=== PATIENT | male | born 1960 | race Caucasian/White ===

== ENCOUNTER 2019-07-24 15:16 | Outpatient (CLI) | END 2019-07-24 15:17 | disposition home or self-care (01) | LOC: NONPT 15:16 | PROVIDERS: ATTEND Family Medicine | DX: E03.9 Hypothyroidism, unspecified (principal); E11.9 Type 2 diabetes mellitus without complications | CPT/HCPCS: 80053; 83036; 84439; 84443; 85025 ==

== ENCOUNTER 2020-10-24 04:40 | Inpatient (IN) ==
[2020-10-24 05:10] VITALS: BMI 26.6
[2020-10-24] MEDS ORDERED: DECADRON IVP STA (05:11)
[2020-10-24] MEDS ORDERED: ZOSYN 3.375 GM 3.375 GM in SODIUM CHLORIDE 50 ML IV STA (05:11)
--- NOTE | 2020-10-24 05:46 | ED.PDOC ---
General ED Provider: Dr. TY GIBSON Chief Complaint: Shortness of Air Stated Complaint: short of breath Time Seen by Physician: 04:45 Mode of Arrival: Ambulance Information Source: Halfway and EMT Primary Care Provider: RUSSEL CABRALES MD Nursing and Triage Documentation Reviewed and Agree: Yes Does patient meet sepsis criteria?: No System Inflammatory Response Syndrome: Not Applicable Sepsis Protocol: For patient's 13 years and over: Temp is 96.8 and below OR 101 and greater Pulse >90 BPM Resp >20/minute Acutely Altered Mental Status Are patient's symptoms suggestive of a new infection, such as: -Pneumonia -Skin, Soft Tissue -Endocarditis -UTI -Bone, Joint Infection -Implantable Device -Acute Abdominal Infection -Wound Infection -Meningitis -Blood Stream Catheter Infection -Unknown Respiratory Complaint Exam Respiratory Complaint/Exam Onset/Duration: this am Symptoms Are: Still present Timing: Constant Initial Severity: Moderate Current Severity: Moderate Location: Chest Character: Reports Productive cough Associated Signs and Symptoms: Reports Rapid breathing History of Healthcare-Acquired Pneumonia: [facility] at [facility] Respiratory Distress: Moderate Inadequate Respiratory Effort: No Stridor Present: No JVD Present: No Accessory Muscle Use: Yes Retractions: Diaphragmatic Diminished Breath Sounds: Yes Differential Diagnoses: Pneumonia, Influenza and Other (covid positive ) Quality Indicators For Pneumonia: Blood Cultures-SCU admit and Vital signs Non-Traumatic Chest Pain Syncope: EKG Performed Review of Systems Review Of Systems Constitutional: Reports No symptoms Respiratory: Reports Cough and Short of air All Other Systems: Other (patient is nonverbal ) Physical Exam Physical Exam Appearance: Reports Ill-appearing Ill-appearing: Moderate Pain Distress: None Eyes: Reports CARIE, EOMI and Conjunctiva clear ENT: Reports Ears normal, Nose normal and Oropharynx normal Neck: Supple Respiratory: Reports Airway patent, Breath sounds diminished and Retractions Cardiovascular: Reports RRR and Pulses normal GI/: Reports Soft and Nontender Musculoskeletal: Reports ROM intact Skin: Reports Warm, Dry and Normal color Neurological: Reports Alert and Alert to verbal Interpretation Radiology Interpretation Radiology Interpretation By: Radiologist Radiology Results: Positive Exam Interpreted: CXR Xray Comments: patchy infiltrates both lungs - pneumonia EKG Interpretation Time of EKG #1: 05:13 Rate: Normal Ectopy: None [place]: Left ST Segment: Other (nsssttw) Interpretation: no acute changes Re-Evaluation Re-Evaluation Time of Re-Evaluation: 06:05 Status: Improved Vital Signs Stable: Yes Lungs: Other (improved aeration no abdominal breathing following suctioning and MDI an dVapotherm by RT Raza ) Skin: Warm and Dry CV: RRR Physician Notification Case Discussed Admit To: Inpatient Consult With: Dr San Comments: [id number] agrees with plan - pt on doac already with regards to dimer Critical Care Note Critical Care Note Total Critical Care Time (mins): 20 Course Course Hematology/Chemistry: 10/24/20 05:55 10/24/20 05:55 Orders, Labs, Meds: Lab Review 10/24/20 10/24/20 10/24/20 05:24 05:55 05:55 WBC 10.29 H RBC 4.90 Hgb 15.5 Hct 46.1 MCV 94.1 H MCH 31.6 H MCHC 33.6 RDW Coeff of Dereje 13.7 Plt Count 251 Immature Gran % (Auto) 0.4 Neut % (Auto) 79.9 H Lymph % (Auto) 7.2 L [place] % (Auto) 12.1 H Eos % (Auto) 0.0 Baso % (Auto) 0.4 Neut # (Auto) 8.2 H Lymph # (Auto) 0.7 [place] # (Auto) 1.3 Eos # (Auto) 0.0 Baso # (Auto) 0.0 Immature Gran # (Auto) 0.0 PT INR Puncture Site Rb O2 Saturation 94.9 L ABG pH 7.42 ABG pCO2 51.0 H ABG pO2 84.0 L ABG HCO3 33.1 H ABG Total CO2 34.7 H ABG Base Excess 8.6 H Gume Test + O2 Delivery Device Bnc Oxygen Liter Flow 2.00 FiO2 % 32.0 Sodium 145.2 H Potassium 3.64 Chloride 105.9 Carbon Dioxide 33.9 H Anion Gap 9.04 BUN 13.0 Creatinine 0.96 Estimated GFR (MDRD) 80.00 BUN/Creatinine Ratio 13.54 Glucose 129.2 H Calcium 8.54 Ferritin 246.00 Total Bilirubin 0.72 AST 34.2 ALT 17.4 Alkaline Phosphatase 106.8 Troponin I < 0.012 Total Protein 8.13 Albumin 3.54 Globulin 4.59 Albumin/Globulin Ratio 0.77 D-Dimer Influ A Molecular Assay Influ B Molecular Assay 10/24/20 10/24/20 10/24/20 05:55 05:55 05:56 WBC RBC Hgb Hct MCV MCH MCHC RDW Coeff of Dereje Plt Count Immature Gran % (Auto) Neut % (Auto) Lymph % (Auto) [place] % (Auto) Eos % (Auto) Baso % (Auto) Neut # (Auto) Lymph # (Auto) [place] # (Auto) Eos # (Auto) Baso # (Auto) Immature Gran # (Auto) PT 13.6 H INR 1.42 Puncture Site O2 Saturation ABG pH ABG pCO2 ABG pO2 ABG HCO3 ABG Total CO2 ABG Base Excess Gume Test O2 Delivery Device Oxygen Liter Flow FiO2 % Sodium Potassium Chloride Carbon Dioxide Anion Gap BUN Creatinine Estimated GFR (MDRD) BUN/Creatinine Ratio Glucose Calcium Ferritin Total Bilirubin AST ALT Alkaline Phosphatase Troponin I Total Protein Albumin Globulin Albumin/Globulin Ratio D-Dimer 1098.01 H Influ A Molecular Assay Negative by naat Influ B Molecular Assay Negative by naat 10/24/20 06:00 WBC RBC Hgb Hct MCV MCH MCHC RDW Coeff of Dereje Plt Count Immature Gran % (Auto) Neut % (Auto) Lymph % (Auto) [place] % (Auto) Eos % (Auto) Baso % (Auto) Neut # (Auto) Lymph # (Auto) [place] # (Auto) Eos # (Auto) Baso # (Auto) Immature Gran # (Auto) PT INR Puncture Site Rb O2 Saturation 93.7 L ABG pH 7.41 ABG pCO2 53.0 H ABG pO2 75.0 L ABG HCO3 33.6 H ABG Total CO2 35.2 H ABG Base Excess 2.4 H Gume Test + O2 Delivery Device Vapotherm Oxygen Liter Flow FiO2 % 40.0 Sodium Potassium Chloride Carbon Dioxide Anion Gap BUN Creatinine Estimated GFR (MDRD) BUN/Creatinine Ratio Glucose Calcium Ferritin Total Bilirubin AST ALT Alkaline Phosphatase Troponin I Total Protein Albumin Globulin Albumin/Globulin Ratio D-Dimer Influ A Molecular Assay Influ B Molecular Assay Orders Category Date Time Status ABG DRAW REQUEST DAILY@0600 CARDIO 10/25/20 06:00 Ordered ABG DRAW REQUEST DAILY@0600 CARDIO 10/26/20 06:00 Ordered ABG DRAW REQUEST DAILY@0600 CARDIO 10/27/20 06:00 Ordered ABG DRAW REQUEST Stat CARDIO 10/24/20 05:17 Completed EKG-(ED ONLY) Stat CARDIO 10/24/20 05:11 Completed METERED DOSE INHALATION Routine CARDIO 10/24/20 05:14 Completed METERED DOSE INHALATION Routine CARDIO 10/24/20 07:30 Ordered OXYGEN Routine CARDIO 10/24/20 06:54 Ordered VAPOTHERM Routine CARDIO 10/24/20 05:26 Active ACTIVITY .Up ad Yareli CARE 10/24/20 06:52 Active BLOOD GLUCOSE MONITORING 0630,1100,1700,2100 CARE 10/24/20 06:54 Active GIVE HS SNACK 2100 CARE 10/24/20 06:54 Active VITAL SIGNS Q8HR CARE 10/24/20 06:52 Active ADA 1800 [place]. DIET DIETARY 10/24/20 Breakfast Ordered HS SNACK DIETARY 10/24/20 Dinner Ordered ED IV/MEDIPORT/POWERPORT .ONCE EMERGENCY 10/24/20 05:11 Active ABG DAILY@0600 LAB 10/24/20 06:00 Completed ABG DAILY@0600 LAB 10/25/20 06:00 Ordered ABG Stat LAB 10/24/20 05:24 Completed BLOOD CULTURE (ED ONLY) Stat LAB 10/24/20 05:55 Received CBC W/ AUTO DIFF DAILY@0600 LAB 10/25/20 06:00 Ordered CBC W/ AUTO DIFF DAILY@0600 LAB 10/26/20 06:00 Ordered CBC W/ AUTO DIFF Stat LAB 10/24/20 05:55 Completed COMPREHENSIVE METABOLIC PANEL DAILY@0600 LAB 10/25/20 06:00 Ordered COMPREHENSIVE METABOLIC PANEL DAILY@0600 LAB 10/26/20 06:00 Ordered COMPREHENSIVE METABOLIC PANEL Stat LAB 10/24/20 05:55 Completed D-DIMER Stat LAB 10/24/20 05:55 Completed FERRITIN Stat LAB 10/24/20 05:55 Completed FLU A & B MOLECULAR [FLU A/B MOLECULAR] Stat LAB 10/24/20 05:55 Completed Lactic Acid Dehydrogenase Stat LAB 10/24/20 05:55 Received PT WITH INR Stat LAB 10/24/20 05:56 Completed TROPONIN I Stat LAB 10/24/20 05:55 Completed 0.9 % Sodium Chloride [Saline Flush] MEDS 10/24/20 05:11 Active 1 syr IVF PRN PRN Acetaminophen [Tylenol] MEDS 10/24/20 07:02 Ordered 650 mg PO Q4H PRN Albuterol Inhaler(with Spacer) [Ventolin Hfa (Per Puff- MEDS 10/24/20 07:29 Discontinued with Spacer)] 2 puff IH ONCE STA Dexamethasone Sod Phosphate [Decadron] MEDS 10/24/20 05:11 Discontinued 6 mg IVP ONCE STA Doxycycline Hyclate Inj [Doxy-100] 100 mg MEDS 10/24/20 09:00 Ordered 0.9 % Sodium Chloride [Sodium Chloride] 100 ml IV Q12HR Insulin Regular, Human [Humulin R] MEDS 10/24/20 06:52 Active See Protocol SUBCUT PRN PRN Magnesium Hydroxide [Milk of Magnesia] MEDS 10/24/20 07:02 Ordered 30 ml PO BID PRN Piperacillin Sodium/Tazobactam [Zosyn 3.375 gm] 3.375 MEDS 10/24/20 05:11 Discontinued gm 0.9 % Sodium Chloride [Sodium Chloride] 50 ml IV ONCE Remdesivir Solution [Remdesivir] 100 mg MEDS 10/25/20 09:00 Ordered 0.9 % Sodium Chloride [Sodium Chloride] 230 ml IV DAILY Remdesivir Solution [Remdesivir] 200 mg MEDS 10/24/20 06:57 Active 0.9 % Sodium Chloride [Sodium Chloride] 210 ml IV ONCE Rivaroxaban [Xarelto] MEDS 10/24/20 09:00 Ordered 20 mg PO DAILY Saccharomyces Boulardii [Florastor] MEDS 10/24/20 09:00 Ordered 250 mg PO BID Tamsulosin HCl [Flomax] MEDS 10/24/20 07:30 Ordered 0.4 mg PO QHS levothyroxine MEDS 10/24/20 07:15 Ordered 25 mcg PO QDAY levothyroxine MEDS 10/24/20 07:15 Ordered 50 mcg PO QDAY memantine-donepezil [Namzaric] MEDS 10/24/20 07:15 Ordered 1 cap PO QHS RESUSCITATION STATUS Routine OTHERS 10/24/20 06:52 Ordered CHEST, 1V AP ONLY Stat RADS 10/24/20 05:11 Completed Medications Generic Name Dose Route Start Last Admin Trade Name Freq PRN Reason Stop Dose Admin Acetaminophen 650 mg 10/24/20 07:02 Acetaminophen 325 Mg Tablet PO Q4H PRN Fever >101 REMDESIVIR SOLUTION 200 mg/ 250 mls @ 125 mls/hr 10/24/20 06:57 Sodium Chloride IV 10/24/20 08:56 ONCE ONE Doxycycline Hyclate 100 mg/ 100 mls @ 50 mls/hr 10/24/20 09:00 Sodium Chloride IV 10/27/20 08:59 Q12HR [facility] REMDESIVIR SOLUTION 100 mg/ 250 mls @ 250 mls/hr 10/25/20 09:00 Sodium Chloride IV DAILY [facility] Insulin Human Regular 0 unit 10/24/20 06:52 Insulin Regular, Human 100 Unit/Ml (3ml) Vial SUBCUT PRN PRN Hyperglycemia Protocol Magnesium Hydroxide 30 ml 10/24/20 07:02 Magnesium Hydroxide 30 Ml Cup PO BID PRN Constipation Non-Formulary Medication 50 mcg 10/24/20 07:15 Levothyroxine PO QDAY ELIZA Non-Formulary Medication 25 mcg 10/24/20 07:15 Levothyroxine PO QDAY [facility] Non-Formulary Medication 1 cap 10/24/20 07:15 Memantine-Donepezil [Namzaric] PO QHS [facility] Rivaroxaban 20 mg 10/24/20 09:00 Rivaroxaban 10 Mg Tablet PO DAILY [facility] Saccharomyces Boulardii 250 mg 10/24/20 09:00 Saccharomyces Boulardii 250 Mg Capsule PO BID [facility] Sodium Chloride 1 syr 10/24/20 05:11 10/24/20 06:03 0.9% Sodium Chloride 10 Ml Disp.Syrin IVF 1 syr PRN PRN Administration To flush IV Tamsulosin HCl 0.4 mg 10/24/20 07:30 Tamsulosin Hcl 0.4 Mg Cap.Er.24h PO QHS [facility] Discontinued Medications Generic Name Dose Route Start Last Admin Trade Name Freq PRN Reason Stop Dose Admin Albuterol Sulfate 2 puff 10/24/20 07:29 10/24/20 05:20 Albuterol Sulfate (Ventolin Hfa) 18 Gm 1 Puff With Spacer IH 10/24/20 07:30 2 puff ONCE STA Administration Dexamethasone Sodium Phosphate 6 mg 10/24/20 05:11 10/24/20 05:50 Dexamethasone Sod Phos 10 Mg/Ml Inj IVP 10/24/20 05:12 6 mg ONCE STA Administration Piperacillin Sod/Tazobactam 50 mls @ 50 mls/hr 10/24/20 05:11 10/24/20 05:55 Sod 3.375 gm/ Sodium Chloride IV 10/24/20 06:10 50 mls/hr ONCE STA Administration Vital Signs: Temp Pulse Resp BP Pulse Ox 10/24/20 05:40 98 10/24/20 04:57 98.3 F 85 20 142/77 H 95 Discharge Plan Discharge Patient Disposition: ADMITTED INPATIENT Discharge Problem: COVID-19 Pneumonia Qualifiers: Pneumonia type: due to unspecified organism Laterality: bilateral Lung location: unspecified part of lung Qualified Code(s): J18.9 - Pneumonia, unspecified organism ED Provider: TY GIBSON Condition: Good Physician Progress Note: []
--- NOTE | 2020-10-24 05:57 | DI ---
EXAM: Chest, single view HISTORY: Dyspnea COMPARISON: None FINDINGS / IMPRESSION: Cardiomediastinal contours appear within normal limits. Left-sided pacer dev ice in place. Patchy interstitial prominence within both lungs. This is most prominent within the s uperior aspect of the right lung. This likely represents pneumonia. No pulmonary consolidation. No pleural effusion or pneumothorax.
[2020-10-24 05:58] LABS: BASOPHILS % (AUTO) 0.4 % (0.0-3.0); HEMATOCRIT 46.1 % (42.0-52.0); HEMOGLOBIN 15.5 g/dl (14.0-18.0); IMMATURE GRANULOCYTE % (AUTO) 0.4 % (0.0-5.0); LYMPHOCYTES # (AUTO) 0.7 K/uL (0.60-3.4); LYMPHOCYTES % (AUTO) 7.2 (10.0-50.0); MEAN CORPUSCULAR HEMOGLOBIN 31.6 pg (27.0-31.0); MEAN CORPUSCULAR HGB CONC 33.6 (31.8-35.4); MEAN CORPUSCULAR VOLUME 94.1 fl (80.0-94.0); MONOCYTES # (AUTO) 1.3 K/uL (0.4-2.0); MONOCYTES % (AUTO) 12.1 (0-10); NEUTROPHILS # (AUTO) 8.2 K/ul (2.0-6.9); NEUTROPHILS % (AUTO) 79.9 % (42.2-75.2); PLATELET COUNT 251 10^3/uL (140-440); RDW COEFFICIENT OF VARIATION 13.7 % (11.6-14.8); WHITE BLOOD COUNT 10.29 K/ul (4.2-10.2)
[2020-10-24] MEDS ORDERED: VENTOLIN HFA (PER PUFF-WITH SPACER) IH SCH (06:00)
[2020-10-24 06:13] LABS: ALANINE AMINOTRANSFERASE 17.4 U/L (0-50); ALBUMIN 3.54 g/dL (3.5-5.0); ALKALINE PHOSPHATASE 106.8 U/L (56-119); ASPARTATE AMINO TRANSFERASE 34.2 U/L (17-59); BILIRUBIN,TOTAL 0.72 mg/dL (0.2-1.3); CALCIUM 8.54 mg/dL (8.4-10.2); CARBON DIOXIDE 33.9 mmol/L (22-30.0); CHLORIDE 105.9 mmol/L (98-107); CREATININE 0.96 mg/dL (0.60-1.10); GLUCOSE 129.2 mg/dL (74-106); POTASSIUM 3.64 mmol/L (3.5-5.1); SODIUM 145.2 mmol/L (134.5-145); TOTAL PROTEIN 8.13 g/dL (6.3-8.2)
[2020-10-24 06:27] LABS: ABG PH 7.42 (7.35-7.45)
[2020-10-24 06:28] LABS: ABG BASE EXCESS 8.6 (-2.0-2.0); ABG HCO3 33.1 (22.0-26.0); ABG OXYGEN SATURATION 94.9 % (95-100); ABG TCO2 34.7 (22.0-28.0)
[2020-10-24 06:36] LABS: TROPONIN I < 0.012 ng/ml (0.0000-0.120)
[2020-10-24 06:43] LABS: PROTHROMBIN TIME 13.6 SEC (9.3-11.0)
[2020-10-24] MEDS ORDERED: HUMULIN R SUBCUT PRN (06:52)
[2020-10-24 06:56] LABS: MOLECULAR FLU A NEGATIVE BY NAAT (NEGATIVE); MOLECULAR FLU B NEGATIVE BY NAAT (NEGATIVE)
[2020-10-24] MEDS ORDERED: REMDESIVIR 200 MG in SODIUM CHLORIDE 210 ML IV ONE ×2 (06:57→08:30)
[2020-10-24 06:58] LABS: ABG PH 7.41 (7.35-7.45)
[2020-10-24 06:59] LABS: ABG BASE EXCESS 2.4 (-2.0-2.0); ABG HCO3 33.6 (22.0-26.0)
[2020-10-24 07:00] LABS: ABG OXYGEN SATURATION 93.7 % (95-100); ABG TCO2 35.2 (22.0-28.0)
[2020-10-24] MEDS ORDERED: PROAIR HFA (SINGLE PATIENT USE) IH SCH (07:00)
[2020-10-24] MEDS ORDERED: MILK OF MAGNESIA PO PRN (07:02)
[2020-10-24] MEDS ORDERED: TYLENOL PO PRN (07:02)
[2020-10-24] MEDS ORDERED: PROAIR HFA (SINGLE PATIENT USE) IH STA (07:09)
[2020-10-24] MEDS ORDERED: LEVOTHYROXINE 25 MCG PO SCH (07:15)
[2020-10-24] MEDS ORDERED: VENTOLIN HFA (PER PUFF-WITH SPACER) IH STA (07:29)
[2020-10-24] MEDS ORDERED: SYNTHROID PO SCH ×2 (09:00)
[2020-10-24] MEDS: DOXY-100 100 MG in SODIUM CHLORIDE 100 ML IV SCH ×2 (09:40→22:03)
[2020-10-24] MEDS: FLORASTOR PO SCH ×2 (09:43→21:01)
[2020-10-24] MEDS: VENTOLIN HFA (PER PUFF-WITH SPACER) IH SCH ×4 (10:10→21:20)
[2020-10-24] MEDS: XARELTO PO SCH (11:28)
[2020-10-24 17:17] LABS: ABG PH 7.46 (7.35-7.45)
[2020-10-24 17:20] LABS: ABG BASE EXCESS 7.5 (-2.0-2.0); ABG HCO3 31.3 (22.0-26.0); ABG OXYGEN SATURATION 91.6 % (95-100); ABG TCO2 32.7 (22.0-28.0)
[2020-10-24] MEDS: ARICEPT PO SCH (21:00)
[2020-10-24] MEDS ORDERED: ROCEPHIN 1 GM/50 ML D5W 1 GM/50 ML BAG IV SCH (21:00)
[2020-10-24] MEDS: FLOMAX PO SCH (21:01)
[2020-10-24] MEDS: NAMENDA PO SCH (21:01)
[2020-10-25] MEDS: VENTOLIN HFA (PER PUFF-WITH SPACER) IH SCH ×6 (01:00→20:05)
[2020-10-25 04:21] LABS: BASOPHILS % (AUTO) 0.1 % (0.0-3.0); HEMATOCRIT 41.6 % (42.0-52.0); HEMOGLOBIN 14.1 g/dl (14.0-18.0); IMMATURE GRANULOCYTE # (AUTO) 0.1 (0.0-1.0); IMMATURE GRANULOCYTE % (AUTO) 0.5 % (0.0-5.0); LYMPHOCYTES # (AUTO) 0.7 K/uL (0.60-3.4); LYMPHOCYTES % (AUTO) 6.6 (10.0-50.0); MEAN CORPUSCULAR HEMOGLOBIN 31.8 pg (27.0-31.0); MEAN CORPUSCULAR HGB CONC 33.9 (31.8-35.4); MEAN CORPUSCULAR VOLUME 93.7 fl (80.0-94.0); MONOCYTES # (AUTO) 1.1 K/uL (0.4-2.0); MONOCYTES % (AUTO) 9.9 (0-10); NEUTROPHILS # (AUTO) 8.9 K/ul (2.0-6.9); NEUTROPHILS % (AUTO) 82.9 % (42.2-75.2); PLATELET COUNT 295 10^3/uL (140-440); RDW COEFFICIENT OF VARIATION 13.6 % (11.6-14.8); RED BLOOD COUNT 4.44 10^6/ul (4.70-6.10); WHITE BLOOD COUNT 10.71 K/ul (4.2-10.2)
[2020-10-25 04:35] LABS: ALANINE AMINOTRANSFERASE 16.8 U/L (0-50); ALBUMIN 3.35 g/dL (3.5-5.0); ALKALINE PHOSPHATASE 95.6 U/L (56-119); BILIRUBIN,TOTAL 0.59 mg/dL (0.2-1.3); BLOOD UREA NITROGEN 19.9 mg/dL (9-20); CALCIUM 8.56 mg/dL (8.4-10.2); CARBON DIOXIDE 32.2 mmol/L (22-30.0); CHLORIDE 110.6 mmol/L (98-107); CREATININE 0.83 mg/dL (0.60-1.10); GLUCOSE 134.6 mg/dL (74-106); POTASSIUM 3.3 mmol/L (3.5-5.1); SODIUM 148.1 mmol/L (134.5-145); TOTAL PROTEIN 7.69 g/dL (6.3-8.2)
[2020-10-25 04:38] LABS: PROTHROMBIN TIME 13.4 SEC (9.3-11.0)
[2020-10-25 04:44] LABS: ABG PH 7.52 (7.35-7.45)
[2020-10-25 04:45] LABS: ABG BASE EXCESS 8.9 (-2.0-2.0); ABG HCO3 31.8 (22.0-26.0); ABG OXYGEN SATURATION 97.7 % (95-100); ABG TCO2 33 (22.0-28.0)
[2020-10-25] MEDS: SYNTHROID PO SCH ×2 (05:51→08:17)
[2020-10-25] MEDS: NAMENDA PO SCH ×2 (08:18→21:01)
[2020-10-25] MEDS: FLORASTOR PO SCH ×2 (08:18→21:01)
[2020-10-25] MEDS: XARELTO PO SCH (08:18)
[2020-10-25] MEDS: DOXY-100 100 MG in SODIUM CHLORIDE 100 ML IV SCH ×2 (08:20→23:00)
[2020-10-25] MEDS: REMDESIVIR 100 MG in SODIUM CHLORIDE 230 ML IV SCH (10:05)
[2020-10-25] MEDS: ROCEPHIN 1 GM/50 ML D5W 1 GM/50 ML BAG IV SCH (20:55)
[2020-10-25] MEDS: FLOMAX PO SCH (21:01)
[2020-10-25] MEDS: ARICEPT PO SCH (21:01)
[2020-10-26] MEDS: VENTOLIN HFA (PER PUFF-WITH SPACER) IH SCH ×6 (01:50→22:10)
[2020-10-26 05:44] LABS: BASOPHILS % (AUTO) 0.3 % (0.0-3.0); HEMATOCRIT 45.9 % (42.0-52.0); HEMOGLOBIN 15.2 g/dl (14.0-18.0); IMMATURE GRANULOCYTE % (AUTO) 0.4 % (0.0-5.0); LYMPHOCYTES % (AUTO) 10.3 (10.0-50.0); MEAN CORPUSCULAR HEMOGLOBIN 31.1 pg (27.0-31.0); MEAN CORPUSCULAR HGB CONC 33.1 (31.8-35.4); MEAN CORPUSCULAR VOLUME 94.1 fl (80.0-94.0); MONOCYTES # (AUTO) 0.9 K/uL (0.4-2.0); MONOCYTES % (AUTO) 10.2 (0-10); NEUTROPHILS # (AUTO) 7.2 K/ul (2.0-6.9); NEUTROPHILS % (AUTO) 78.8 % (42.2-75.2); PLATELET COUNT 321 10^3/uL (140-440); RDW COEFFICIENT OF VARIATION 13.7 % (11.6-14.8); RED BLOOD COUNT 4.88 10^6/ul (4.70-6.10); WHITE BLOOD COUNT 9.19 K/ul (4.2-10.2)
[2020-10-26 05:55] LABS: ALANINE AMINOTRANSFERASE 15.6 U/L (0-50); ALBUMIN 3.39 g/dL (3.5-5.0); ALKALINE PHOSPHATASE 98.4 U/L (56-119); BILIRUBIN,TOTAL 0.46 mg/dL (0.2-1.3); BLOOD UREA NITROGEN 24.8 mg/dL (9-20); CALCIUM 8.86 mg/dL (8.4-10.2); CARBON DIOXIDE 33.8 mmol/L (22-30.0); CHLORIDE 112.5 mmol/L (98-107); CREATININE 1.01 mg/dL (0.60-1.10); GLUCOSE 95.5 mg/dL (74-106); POTASSIUM 3.53 mmol/L (3.5-5.1); SODIUM 150.6 mmol/L (134.5-145); TOTAL PROTEIN 7.99 g/dL (6.3-8.2)
[2020-10-26 05:57] LABS: PROTHROMBIN TIME 16.6 SEC (9.3-11.0)
[2020-10-26] MEDS: SYNTHROID PO SCH (06:10)
[2020-10-26] MEDS: DOXY-100 100 MG in SODIUM CHLORIDE 100 ML IV SCH ×2 (09:55→22:25)
[2020-10-26] MEDS: NAMENDA PO SCH ×2 (09:56→20:40)
[2020-10-26] MEDS: XARELTO PO SCH (09:56)
[2020-10-26] MEDS: FLORASTOR PO SCH ×2 (09:56→20:39)
[2020-10-26] MEDS: REMDESIVIR 100 MG in SODIUM CHLORIDE 230 ML IV SCH (12:37)
[2020-10-26] MEDS ORDERED: INFUVITE ADULT IV ONE (15:12)
[2020-10-26] MEDS ORDERED: INFUVITE ADULT 10 ML in DEXTROSE 5%-LR IV SOLUTION 1,000 ML IV ONE (15:30)
--- NOTE | 2020-10-26 16:02 | CT ---
EXAM: CT THORAX HISTORY: Cough, congestion and difficulty swallowing. TECHNIQUE: CT thorax without intravenous contrast. Multiplanar images presented. COMPARISON: None FINDINGS: Normal heart size. There is a small pericardial effusion. Pacemaker unit noted. Thoracic aorta is within normal limits. Limited evaluation of the mediastinum and hilar structures without the adminis tration of intravenous contrast agent. There are a few nonspecific mediastinal hilar lymph nodes sug gested. Mild thickening of the distal esophagus. Lungs reveal moderate infiltrates most noted on the right suggesting pneumonia. A few pulmonary nodu les may be present versus nodular infiltrates. One measures 6.4 mm in the right apex. Another measu res 8 mm lateral right upper lobe. Possible 5.9 mm right perihilar nodule. There is no characterist ic picture of active congestive heart failure/fluid overload. There is no pneumothorax or pleural fl uid. The bones reveal age-related degenerative changes of the spine. IMPRESSION: 1. Moderate bilateral infiltrates most noted on the right. Consider aspiration pneumonia or pneumon ia from other etiology. Cannot exclude pulmonary nodules as described. Follow-up CT will be needed. 2. Mild thickening of the distal esophagus may represent esophagitis. This can be followed by bariu m esophagram to help exclude other esophageal pathology. 3. Small pericardial effusion.
--- NOTE | 2020-10-26 16:22 | RS.SLPCNOT ---
Speech Case Note Date of Note: 10/26/20 Title: Swallow consult Note: RN approached EQUIPMENT WASHER about pt's difficulty with puree diet texture. Pt has hx of dysphagia and cognitive impairments as well as down syndrome that interefe with his safe swallow. RN reported pt also has a forward tongue thrust and starts coughing with PO intake. However, due to recent positive COVID-19, pt may have a resting cough or residual cough. At this time the following can be closely monitored: Complete chest x-rays, monitor temperature spikes and WBC, monitor lung sounds. EQUIPMENT WASHER recommends that MD and case management decide if further assessment needs to be completed by the EQUIPMENT WASHER. If pt needs EQUIPMENT WASHER intervention the following will be discussed. 1. alternative means of nutrition via acute NGT or permanent PEG placement 2. comfort measures with PO for quality with risk for aspiration 3. increase nutritional supplements and decrease puree trials. 4. provide smaller more frequent meals to reduce fatigue, hunger, impulsivity with PO. At this time, pt's risk for aspiration is based on vaccinator of difficulty with puree trials. EQUIPMENT WASHER has not observed pt at the bedside with any PO trials.
[2020-10-26] MEDS: ARICEPT PO SCH (20:39)
[2020-10-26] MEDS: ROCEPHIN 1 GM/50 ML D5W 1 GM/50 ML BAG IV SCH (20:39)
[2020-10-26] MEDS: FLOMAX PO SCH (20:40)
[2020-10-27] MEDS: VENTOLIN HFA (PER PUFF-WITH SPACER) IH SCH ×6 (01:50→21:05)
[2020-10-27] MEDS ORDERED: D5%-1/2NS-KCL 20 MEQ/L IV SOL 1,000 ML IV SCH (05:00)
[2020-10-27 05:28] LABS: BASOPHILS % (AUTO) 0.3 % (0.0-3.0); HEMATOCRIT 44.3 % (42.0-52.0); IMMATURE GRANULOCYTE # (AUTO) 0.1 (0.0-1.0); IMMATURE GRANULOCYTE % (AUTO) 0.6 % (0.0-5.0); LYMPHOCYTES # (AUTO) 0.9 K/uL (0.60-3.4); LYMPHOCYTES % (AUTO) 6.1 (10.0-50.0); MEAN CORPUSCULAR HEMOGLOBIN 31.6 pg (27.0-31.0); MEAN CORPUSCULAR HGB CONC 33.9 (31.8-35.4); MEAN CORPUSCULAR VOLUME 93.3 fl (80.0-94.0); MONOCYTES # (AUTO) 1.2 K/uL (0.4-2.0); MONOCYTES % (AUTO) 8.6 (0-10); NEUTROPHILS # (AUTO) 11.8 K/ul (2.0-6.9); NEUTROPHILS % (AUTO) 84.4 % (42.2-75.2); PLATELET COUNT 288 10^3/uL (140-440); RDW COEFFICIENT OF VARIATION 13.9 % (11.6-14.8); RED BLOOD COUNT 4.75 10^6/ul (4.70-6.10); WHITE BLOOD COUNT 14.01 K/ul (4.2-10.2)
[2020-10-27 05:38] LABS: PROTHROMBIN TIME 19.9 SEC (9.3-11.0)
[2020-10-27 05:46] LABS: ALANINE AMINOTRANSFERASE 13.2 U/L (0-50); ALBUMIN 3.1 g/dL (3.5-5.0); ASPARTATE AMINO TRANSFERASE 25.3 U/L (17-59); BILIRUBIN,TOTAL 0.6 mg/dL (0.2-1.3); BLOOD UREA NITROGEN 18.8 mg/dL (9-20); CALCIUM 8.44 mg/dL (8.4-10.2); CARBON DIOXIDE 31.2 mmol/L (22-30.0); CHLORIDE 116.2 mmol/L (98-107); CREATININE 0.83 mg/dL (0.60-1.10); GLUCOSE 155.2 mg/dL (74-106); POTASSIUM 3.16 mmol/L (3.5-5.1); SODIUM 151.7 mmol/L (134.5-145); TOTAL PROTEIN 7.42 g/dL (6.3-8.2)
[2020-10-27] MEDS: SYNTHROID PO SCH (06:02)
[2020-10-27] MEDS: DOXY-100 100 MG in SODIUM CHLORIDE 100 ML IV SCH ×2 (09:29→21:03)
[2020-10-27] MEDS: FLORASTOR PO SCH ×2 (09:31→21:03)
[2020-10-27] MEDS: NAMENDA PO SCH ×2 (09:32→21:03)
[2020-10-27] MEDS: XARELTO PO SCH (09:32)
[2020-10-27] MEDS: ROCEPHIN 1 GM/50 ML D5W 1 GM/50 ML BAG IV SCH (10:30)
[2020-10-27] MEDS: REMDESIVIR 100 MG in SODIUM CHLORIDE 230 ML IV SCH (11:49)
[2020-10-27] MEDS ORDERED: D5%-1/4NS-KCL 20 MEQ/L IV SOL 1,000 ML IV SCH (15:00)
[2020-10-27] MEDS: ARICEPT PO SCH (21:03)
[2020-10-27] MEDS: FLOMAX PO SCH (21:03)
[2020-10-28] MEDS: VENTOLIN HFA (PER PUFF-WITH SPACER) IH SCH ×6 (01:03→21:10)
[2020-10-28] MEDS ORDERED: [UNRECOGNIZED DRUG - MIXTURE] IV SCH (04:02)
[2020-10-28] MEDS ORDERED: POTASSIUM CHLORIDE 20 MEQ VIAL- ADDITIVE ONLY IV ONE (04:16)
[2020-10-28] MEDS: SYNTHROID PO SCH (05:40)
[2020-10-28 07:32] LABS: ALANINE AMINOTRANSFERASE 12.1 U/L (0-50); ALBUMIN 2.79 g/dL (3.5-5.0); ALKALINE PHOSPHATASE 91.3 U/L (56-119); ASPARTATE AMINO TRANSFERASE 23.3 U/L (17-59); BILIRUBIN,TOTAL 0.35 mg/dL (0.2-1.3); CALCIUM 8.19 mg/dL (8.4-10.2); CREATININE 0.88 mg/dL (0.60-1.10); GLUCOSE 146.1 mg/dL (74-106); TOTAL PROTEIN 6.82 g/dL (6.3-8.2)
[2020-10-28 07:45] LABS: PROTHROMBIN TIME 20.6 SEC (9.3-11.0)
[2020-10-28 07:54] LABS: CARBON DIOXIDE 33.2 mmol/L (22-30.0); CHLORIDE 115.4 mmol/L (98-107); POTASSIUM 3.13 mmol/L (3.5-5.1); SODIUM 150.4 mmol/L (134.5-145)
[2020-10-28] MEDS: FLORASTOR PO SCH ×2 (08:14→21:10)
[2020-10-28] MEDS: NAMENDA PO SCH ×2 (08:14→21:11)
[2020-10-28] MEDS: DOXY-100 100 MG in SODIUM CHLORIDE 100 ML IV SCH (08:14)
[2020-10-28] MEDS: XARELTO PO SCH (08:14)
[2020-10-28] MEDS: REMDESIVIR 100 MG in SODIUM CHLORIDE 230 ML IV SCH (12:14)
--- NOTE | 2020-10-28 14:09 | RS.BEDDYS ---
Subjective Date of Evaluation: 10/28/20 Date of Onset/Injury/Change in Status: 10/24/20 (admission) Diagnosis: Pneumonia, COVID-19 Current Diet: Puree diet texture. nectar thick liquid consistency. Medications crushed in applesauce Current Subjective/complaints:: Per casermanager talent-UNABLE TO SAFELY CONSUME PUREED DIET. HAS BEEN ABLE TO TAKE MEDICATIONS CRUSHED AND ADMINISTERED IN ICE CREAM (LAST NIGHT) AND APPLESAUCE TODAY. YESTERDAY, NURSING NOTED THE PATIENT SWALLOWED 2-3 TIMES WITH EACH BITE AND THEN HAD A LOOSE COUGH. HE WAS SUCTIONED SEVERAL TIMES ORALLY WITH CREAMY BROWN TO YELLOW MUCUS OBTAINED. HE IS TO BE SEEN BY SPEECH THERAPY FOR EVALUATION TODAY. Pt was alert and cooperative for [employer]. Pt opened mouth and allowed oral care routine to be completed. Pt smiled, laughed, and vocalized several times with the [employer]. Pt appeared alert and ready for PO intake. Medical History Comments:: Down syndrome, DM2, TIA, Dementia without behavior, dysphagia Hx Home Medications: Refer to medications for complete list. Patient's Goals: To consume safest and least restrictive diet/liquid. General Information - General Ability to Follow Directions: Fair Is Patient able to Repeat Directions?: No Oral Expression Ability: Unable (vocalized. No coherent verbalizations to indicate wants/needs.) - Voice Voice Quality: Hoarse, Weak Voice Loudness: Mildly Soft/Quiet Oral-Facial Assessment - Dental/Labial Mouth Occlusion: Lower Protrusion Teeth Characteristics: Missing, Broken, Spaces Teeth Comment: Teeth and gums are in poor condition Lip Protrusion: Weak (Pt did not complete. Weak at rest) Lips Comment: Labials dry and cracked with dried secretions and skin present. - Lingual Protrusion: Discoordination (Pt observed with voluntary lingual thrust demonstrating discoordination with movements.) Retraction: Discoordination Comments: Lingual surface with dried secretions and dry appearance. Pt has a forward-resting tongue posture. - Comments/Additional Info. Comments:: A complete oral motor examination was not completed. Pt did not follow commands. [employer]ER could not model movements due to N95 mask. Food Presentation - Solids Food Presented: Pureed (via 1/2 tsp) Behaviors/Comments: [employer] MAKER presented tsp midline. Pt did not clear spoon and left bolus on lingual surface. [employer] MAKER cued pt to swallow bolus several times. Pt's swallow response was timely, but not functional. He had audible swallow response with immediate wet cough. - Liquids Liquid Presented: [place] (via open cup and 1/2 tsp.) Behaviors/Comments: [employer]KER presented open cup. Pt attempted drink, but labial seal was not complete and spillage was observed. [employer] MAKER presented 1/2 tsp midline. Pt immediately swallowed. 5-6 swallows were observed with one presentation. Pt had delayed cough response, audible swallows, and wet sounds that indicated possible aspiration. Pt with risk for aspiration/penetration. - Recommendations: Dysphagia Evaluation Dietary Recommendations: NPO Comments:: Pt's overt s/s of aspiration, suctioning episodes, audible swallow response, WBC, and temperature spikes indicate high risk of aspiration with PO. Pt is on day 5 of antibitotics, but lab work is not improving. [employer] FO[employer] MAKER does think that pt has general weakness at this time interfering with his swallow function. If he improves his general health status, [employer] FO[employer] MAKER would recommend to try PO feeding again. Comments:: Oral care routine, keep bacteria out of mouth, essential meds crushed in applesauce. DO NOT OFFER PO DAIRY PRODUCTS WITH MEDS. - Summary Dysphagia Evaluation Summary: Pt presents with profound oropharyngeal dysphagia as characterized by labial strength, lingual posture, lingual coordination, BOT coordination, decreased hyolaryngeal excursion, audible swallow, multiple swallows, wet swallows, immediate and delayed cough, and change in respiratory rate. [employer] MAKER does not recommend PO at this time. Pt had to be suctioned 2x via [place] yesterday this date. He was suctioned one time this date. His WBC is elevated, temp is not improving, and all staff is reporting difficulty with PO feeds. Pt has a high risk for aspiration, or possible aspiration episodes are happening at this time. NPO STATUS IS HIGHLY RECOMMENDED. IF FAMILY OR MD WANT PO DECISIONS; PLEASE REFER TO [employer] FO[employer] MAKER'S CONSULT NOTE FOR SUGGESTIONS. Further Therapy Indicated?: Yes Comments: [employer]KER would like to complete a MBSS once pt has completed quarantine. Rehab Potential: Fair Functional Reporting G Codes: n/a Severity Impairment Rationale: n/a Short Term Goals Problem: NPO Goal #1: Pt consume therapeutic trials with [employer] w/o overt s/s of asp. Goal to be met by: 11/03/20 Problem: NPO Goal #2: Complete strict oral care routine to reduce aspiration of oral bacteria Goal to be met by: 11/03/20 Problem: NPO Goal #3: Pt to remain NPO to reduce aspiration risks. Goal to be met by: 10/29/20 Stator Plate Washer Goals Problem: NPO Goal #1: Pt to consume safest and least restrictive diet w/o overt s/s of asp. Goal to be met by: 11/03/20 Problem: NPO Goal #2: Pt to consume safest and least restrictive liquid w/o overt s/s of asp. Problem: Swallow safety Goal #3: Staff/caregivers to follow safe swallow and aspiration precautions 100% Goal to be met by: 11/03/20 Plan Duration of Treatment: 1 Week Frequency of Treatment: 3-5x/week Anticipated Discharge Destination: [facility] Comments: [employer]KER recommends NPO for one day. [employer] FO[employer] MAKER to return 10/29/20 in the a.m. to re-assess pt's swallow function and determine readiness for PO. - Treatment Code (1) Oropharyngeal dysphagia Code(s): R13.12 - Dysphagia, oropharyngeal phase
[2020-10-28] MEDS ORDERED: ROCEPHIN 1 GM/50 ML D5W 1 GM/50 ML BAG IV ONE (15:00)
[2020-10-28] MEDS ORDERED: [UNRECOGNIZED DRUG - MIXTURE] IV SCH (16:00)
[2020-10-28] MEDS: [UNRECOGNIZED DRUG - MIXTURE] IV SCH (16:51)
[2020-10-28] MEDS: ARICEPT PO SCH (21:11)
[2020-10-28] MEDS: FLOMAX PO SCH (21:11)
[2020-10-29] MEDS: VENTOLIN HFA (PER PUFF-WITH SPACER) IH SCH ×6 (01:18→22:10)
[2020-10-29] MEDS ORDERED: POTASSIUM CHLORIDE 20 MEQ VIAL- ADDITIVE ONLY IV ONE ×3 (03:57→17:46)
[2020-10-29] MEDS: [UNRECOGNIZED DRUG - MIXTURE] IV SCH ×2 (04:10→17:54)
[2020-10-29 05:57] LABS: BASOPHILS # (AUTO) 0.1 K/uL (0-0.2); BASOPHILS % (AUTO) 0.5 % (0.0-3.0); EOSINOPHILS # (AUTO) 0.1 K/ul (0.0-0.7); EOSINOPHILS % (AUTO) 0.5 % (0.0-7.0); HEMATOCRIT 41.7 % (42.0-52.0); HEMOGLOBIN 13.7 g/dl (14.0-18.0); IMMATURE GRANULOCYTE # (AUTO) 0.1 (0.0-1.0); IMMATURE GRANULOCYTE % (AUTO) 1.1 % (0.0-5.0); LYMPHOCYTES # (AUTO) 1.1 K/uL (0.60-3.4); LYMPHOCYTES % (AUTO) 8.2 (10.0-50.0); MEAN CORPUSCULAR HGB CONC 32.9 (31.8-35.4); MEAN CORPUSCULAR VOLUME 94.3 fl (80.0-94.0); MONOCYTES # (AUTO) 1.4 K/uL (0.4-2.0); MONOCYTES % (AUTO) 10.7 (0-10); NEUTROPHILS # (AUTO) 10.3 K/ul (2.0-6.9); PLATELET COUNT 266 10^3/uL (140-440); RDW COEFFICIENT OF VARIATION 14.3 % (11.6-14.8); RED BLOOD COUNT 4.42 10^6/ul (4.70-6.10); WHITE BLOOD COUNT 12.97 K/ul (4.2-10.2)
[2020-10-29 06:10] LABS: ALANINE AMINOTRANSFERASE 11.4 U/L (0-50); ALBUMIN 2.45 g/dL (3.5-5.0); ALKALINE PHOSPHATASE 86.3 U/L (56-119); ASPARTATE AMINO TRANSFERASE 21.6 U/L (17-59); BILIRUBIN,TOTAL 0.38 mg/dL (0.2-1.3); CALCIUM 7.89 mg/dL (8.4-10.2); CHLORIDE 114.1 mmol/L (98-107); CREATININE 0.81 mg/dL (0.60-1.10); GLUCOSE 125.2 mg/dL (74-106); POTASSIUM 3.48 mmol/L (3.5-5.1); SODIUM 147.8 mmol/L (134.5-145); TOTAL PROTEIN 6.25 g/dL (6.3-8.2)
[2020-10-29] MEDS: SYNTHROID PO SCH (06:20)
[2020-10-29] MEDS: FLORASTOR PO SCH ×2 (08:37→21:25)
[2020-10-29] MEDS: XARELTO PO SCH (08:38)
[2020-10-29] MEDS: NAMENDA PO SCH ×2 (08:38→21:25)
--- NOTE | 2020-10-29 10:47 | RS.DYSPHTX ---
Dysphagia Treatment Note Date of Note: 10/29/20 Visit #: 1 Time of Treatment: 09:00 Subjective: Pt alert and cooperative for DIGITAL COORDINATOR. Pt responded to simple questions and verbalized "ouch" when he was re-positioned in the bed. Pt's oral cavity was in fair condition with dried secretions primarily on labials and lingual surface. WIRE TAPER participated with DIGITAL COORDINATOR to administer essential medications. Pt's notes were reviewed from nursing and case management. MD agreeable for pt to maintain NPO status and allow DIGITAL COORDINATOR to determine readiness for PO intake. Notes also documented no suctioning required since placed NPO; indicating either less residual build-up for PO trials and/or pt tolerating secretions with more voluntary swallows. Pt still has a high risk for aspiration. Total treatment time: 30 - Short Term Goals Goal #1: Pt consume therapeutic trials with DIGITAL COORDINATOR w/o overt s/s of asp. Activity/Accuracy: WIRE TAPER came into room with DIGITAL COORDINATOR to adminster essential meds. Meds were crushed finely and placed in applesauce. WIRE TAPER presented the medications and DIGITAL COORDINATOR provided max cueing and laryngeal palpation for swallow response. Pt had mildly delayed swallow response approximately 2-3 seconds in duration. However, multiple swallow responses were required for one bolus. Pt had immediate wet cough, non productive, and change in respiratory rate. PT HAS A HIGH RISK FOR ASPIRATION WITH ALL PO TRIALS. Goal #2: Complete strict oral care routine to reduce aspiration of oral bacteria Activity/Accuracy: DIGITAL COORDINATOR completed oral care routine prior to medication administration. Pt required several toothettes to clean oral cavity. Loose dried skin around labials and on lingual surface easily was swiped out of the mouth. Due to pt's oral posture and lingual thrust, pt is susceptible to dired secretions building-up quickly. DIGITAL COORDINATOR RECOMMENDS TO CONTINUE STRICT ORAL CARE ROUTINE EVERY 3 HOURS. ORAL CARE PRE AND POST MEDICATION ADMINISTRATION. Goal #3: Pt to remain NPO to reduce aspiration risks. Activity/Accuracy: DIGITAL COORDINATOR RECOMMENDS CONTINUATION OF NPO STATUS. Pt's WBC continues to be elevated at 12.97. Pt had a temp spike of 101.2. Pt continues to have a non-productive moist cough with all PO presentations. Lung sounds have not improved and continue to sound dimished/coarse with rhonci bilaterally. Also d/t cognitive status and down syndrome, pt has minimal verbalizations and inconsistently follows commands. This reduces pt's ability to learn compensatory swallow strategies and follow safe swallow/aspiration precautions. - Card Writer Hand Goals Goal #1: Pt to consume safest and least restrictive diet w/o overt s/s of asp. Goal #2: Pt to consume safest and least restrictive liquid w/o overt s/s of asp. Goal #3: Staff/caregivers to follow safe swallow and aspiration precautions 100% Assessment: DIGITAL COORDINATOR re-assessed pt's readiness for PO intake. DIGITAL COORDINATOR RECOMMENDS TO CONTINUE NPO STATUS. Pt has several indications that NPO is required at this time. 10/26/20 CT of chest revealed bilateral infiltrates indicating possible aspiration pneumonia. CT report also discussed possible esophagitis. DIGITAL COORDINATOR noted possible UES dysfunction at time of evaluation without reviewing this CT scan. Now DIGITAL COORDINATOR definitely attributes audible swallow to UES dysfunction. Further testing of esophageal function and MBSS is highly recommended prior to further PO intake. Pt continues to present with a wet swallow response, multiple swallows with one bolus presentation, immediate cough responses, non-productive coughing, and minimal improvements with labs and temperature. - Units Charged Swallowing Therapy: 2 - Plan Comments: IF MD WANTS PO DIET OVER THE WEEKEND-NURSING PLACE PT ON PUREE/PUDDING. CALL DIGITAL COORDINATOR [phone] FOR ANY QUESTIONS. DIGITAL COORDINATOR IS REQUESTING PT REMAIN NPO UNTIL FURTHER MBSS/ESOPHAGEAL BARIUM SWALLOW TESTS CAN BE COMPLETED. PT HAS A HIGH RISK FOR ASPIRATION.
[2020-10-29] MEDS: ARICEPT PO SCH (21:25)
[2020-10-29] MEDS: FLOMAX PO SCH (21:25)
[2020-10-30] MEDS: VENTOLIN HFA (PER PUFF-WITH SPACER) IH SCH ×6 (02:00→21:55)
[2020-10-30] MEDS ORDERED: POTASSIUM CHLORIDE 20 MEQ VIAL- ADDITIVE ONLY IV ONE ×2 (05:12→17:15)
[2020-10-30] MEDS: [UNRECOGNIZED DRUG - MIXTURE] IV SCH ×2 (05:17→17:20)
[2020-10-30 05:18] LABS: BASOPHILS # (AUTO) 0.1 K/uL (0-0.2); BASOPHILS % (AUTO) 0.7 % (0.0-3.0); EOSINOPHILS # (AUTO) 0.3 K/ul (0.0-0.7); EOSINOPHILS % (AUTO) 2.5 % (0.0-7.0); HEMATOCRIT 41.9 % (42.0-52.0); IMMATURE GRANULOCYTE # (AUTO) 0.2 (0.0-1.0); IMMATURE GRANULOCYTE % (AUTO) 1.5 % (0.0-5.0); LYMPHOCYTES # (AUTO) 1.1 K/uL (0.60-3.4); LYMPHOCYTES % (AUTO) 11.3 (10.0-50.0); MEAN CORPUSCULAR HEMOGLOBIN 31.3 pg (27.0-31.0); MEAN CORPUSCULAR HGB CONC 33.4 (31.8-35.4); MEAN CORPUSCULAR VOLUME 93.5 fl (80.0-94.0); MONOCYTES # (AUTO) 1.2 K/uL (0.4-2.0); MONOCYTES % (AUTO) 11.7 (0-10); NEUTROPHILS # (AUTO) 7.2 K/ul (2.0-6.9); NEUTROPHILS % (AUTO) 72.3 % (42.2-75.2); PLATELET COUNT 285 10^3/uL (140-440); RDW COEFFICIENT OF VARIATION 14.3 % (11.6-14.8); RED BLOOD COUNT 4.48 10^6/ul (4.70-6.10)
[2020-10-30 05:32] LABS: ALANINE AMINOTRANSFERASE 11.9 U/L (0-50); ALBUMIN 2.49 g/dL (3.5-5.0); ALKALINE PHOSPHATASE 92.7 U/L (56-119); BILIRUBIN,TOTAL 0.45 mg/dL (0.2-1.3); BLOOD UREA NITROGEN 13.8 mg/dL (9-20); CALCIUM 7.82 mg/dL (8.4-10.2); CARBON DIOXIDE 30.2 mmol/L (22-30.0); CHLORIDE 111.8 mmol/L (98-107); CREATININE 0.78 mg/dL (0.60-1.10); GLUCOSE 125.2 mg/dL (74-106); POTASSIUM 3.75 mmol/L (3.5-5.1); TOTAL PROTEIN 6.52 g/dL (6.3-8.2)
[2020-10-30] MEDS: SYNTHROID PO SCH (06:19)
[2020-10-30] MEDS: FLORASTOR PO SCH ×2 (08:51→20:21)
[2020-10-30] MEDS: NAMENDA PO SCH ×2 (08:51→20:22)
[2020-10-30] MEDS: XARELTO PO SCH (08:52)
[2020-10-30] MEDS ORDERED: CALMOSEPTINE OINTMENT TP PRN (14:36)
[2020-10-30] MEDS: FLOMAX PO SCH (20:21)
[2020-10-30] MEDS: ARICEPT PO SCH (20:22)
[2020-10-31] MEDS: VENTOLIN HFA (PER PUFF-WITH SPACER) IH SCH ×6 (02:05→21:30)
[2020-10-31] MEDS ORDERED: POTASSIUM CHLORIDE 20 MEQ VIAL- ADDITIVE ONLY IV ONE ×3 (05:46→23:04)
[2020-10-31] MEDS: [UNRECOGNIZED DRUG - MIXTURE] IV SCH ×3 (05:47→23:10)
[2020-10-31] MEDS: SYNTHROID PO SCH (06:00)
[2020-10-31] MEDS: NAMENDA PO SCH ×2 (08:38→23:15)
[2020-10-31] MEDS: XARELTO PO SCH (08:38)
[2020-10-31] MEDS: FLORASTOR PO SCH ×2 (08:38→23:06)
--- NOTE | 2020-10-31 09:50 | CT ---
EXAM: CT scan of the head without contrast HISTORY: Unequal pupils TECHNIQUE: Helical imaging of the head was performed without contrast. 5 mm thin axial images and c oronal and sagittal images were provided for interpretation. Comparison a report of a CT scan of 02/12/2015. Images were not available for comparison. FINDINGS: The lateral ventricles and cortical sulci are prominent from atrophy. The basal cisterns are patent. No acute hemorrhages are seen. Low density changes are seen throughout the supratentori al white matter. Calcifications are again seen within the basal ganglia and within the periventricul ar white matter along the right frontal horn. The basal cisterns are patent. There are no extraaxia l collections. There is prominence of the lateral ventricles and cortical sulci secondary to atrophy . IMPRESSION: No acute intracranial abnormalities are seen. Cerebral atrophy. Mild chronic small vessel ischemic changes seen within the supratentorial white matter.
[2020-10-31] MEDS: ARICEPT PO SCH (23:06)
[2020-10-31] MEDS: FLOMAX PO SCH (23:06)
[2020-11-01] MEDS: VENTOLIN HFA (PER PUFF-WITH SPACER) IH SCH ×5 (01:03→17:20)
[2020-11-01] MEDS: FLORASTOR PO SCH (08:21)
[2020-11-01] MEDS: NAMENDA PO SCH (08:21)
[2020-11-01] MEDS: XARELTO PO SCH (08:22)
[2020-11-01] MEDS: SYNTHROID PO SCH (08:22)
[2020-11-01 14:03] VITALS: BP 110/61; TEMP 96.9
--- NOTE | 2020-11-01 14:50 | PN ---
DATE OF SERVICE: 10/31/2020 CONVERSATION NOTES SUBJECTIVE: KATIA Garcia for Tae Singh, [id number]. I did call Mr. Scruggs yesterday and left a message when I first called him. I did dial him again but I did not leave any message. He called me back in the early evening hours and we had an exchange of information. Mr. Scruggs told me that he is the [id number]-yrs of Mr. Singh. His was his sister who has two years ago. I did inform him that Mr. Singh is alert and awake and arousable but have difficulty swallowing food, liquids or solids including a thickened liquid. He has maintain his nutrition. If he continues to have this is that one was insert a tube in the stomach through the abdominal wall and he has to be put to sleep for that and a speciality doctor, A GI doctor will put the tube or a tube could be inserted through the nose into the stomach and the feeding to be given through there. Tube in the nose reduces a whole lot of discomfort then the nose is quite sensitive to that including the throat. Tube in the stomach requires him to be asleep. He did inform him that if he would be put on Hospice that he would be made comfortable for the rest of his life. He told me that he does not recognize him anymore and had not been for the last year. He also agree to me that Mr. Singh no longer has a quality of life. He told me that he would talk to the niece or nephews of Mr. Singh and see what they have to say about the conditions and also the course of treatment for him. He told me that he would call me back tomorrow 11/01/2020. ARSLAN
--- NOTE | 2020-11-01 14:56 | PN ---
DATE OF SERVICE: 11/01/2020 CONVERSATION NOTE SUBJECTIVE: KATIA Garcia for Mr. Tae Singh. He did call me late this morning and told me that his daughter who lives in [place] would like to see him. I told me we would arrange that with [facility] and see if they would allow her to come in and see Mr. Singh in person. He told me that he is not where he is residing he is now in [place] and did not ask him whether he is now permenantly there or on vacation. He just told me that he is in [place]. I told him that I would send Mr. Singh today and we will call for Hospice and he seemed to be agreeable to that. I told him Hospice will make him comfortable and he will not be forced to eat because he is not able to swallow well and he would aspirate. He is agreeable to the idea of hospice. Told him that we will call Hospice and Hospice will be contacting him. Told him that I would be [facility] today. ARSLAN
[2020-11-01] MEDS: [UNRECOGNIZED DRUG - MIXTURE] IV SCH (15:14)
--- NOTE | 2020-11-02 11:12 | HP ---
DATE OF SERVICE: 10/24/2020 CHIEF COMPLAINT: Increasing shortness of breath. COVID positive 10/15/2020. HISTORY OF PRESENT ILLNESS: The patient who [facility] a [facility] the [facility] for some time tested positive for COVID on routine testing. This happened on 10/15/2020. This patient was in the COVID unit of the [facility] and was noted to have an increasing shortness of breath on 10/24/2020 and the patient was then sent to [place] [facility] further evaluation. His respiratory distress was described as moderate and the severity was moderate. He was subsequently admitted to the hospital. Chest x-ray showed findings compatible with pneumonia EKG has no acute changes. CBC showed lymphopenia 7.2 lymphocyte %. Arterial blood gasses FiO2 32%, O2 saturation 94.9, cO2 51 high, pO2 84. Liver enzymes were normal. Troponin normal. D-Dimer done later after admission on the same blood sample was slightly elevated 1,098. The patient did receive Dexamethasone 6mg intravenously at the emergency room as well as Doxycycline 100mg and then every 12 hours plus Zosyn 3.375 Intravenously once and Remdesivir 200mg initially and then 100mg daily. PAST PERSONAL HISTORY: This patient has a mongoloid type of appearance. Also had cardiac problems with a cardiac pacemaker. He had history of cerebral vascular accident with progressive dementia. He also has diabetes mellitus, down syndrome, history of DVT on anticoagulation, he had a history of dysphagia since CVA plus hypothyroidism. This patient had been nonverbal. The patient had no previous surgical intervenous except for the insertion of the cardiac pacer. FAMILY HISTORY: The patient had a sister and two years ago. MEDICATIONS: Tylenol 650mg Q 4 hour PRN for pain Levothyroxine 75mcg daily Milk of Magnesia 30cc twice a day as needed Memantine ER 28mg daily Aricept 10mg daily Multivitamin one daily Xarelto 20mg daily Florastor 250mg twice a day Tamsulosin 0.4mg daily ALLERGIES: No known drug allergies FAMILY HISTORY: Unable to get a very good family history REVIEW OF SYSTEMS: Not able to answer PHYSICAL EXAMINATION: GENERAL: He is with down syndrome admitted to the hospital because of increasing shortness of breath with a positive COVID test 10/14/2020. VITAL SIGNS: Temperature 97.5 axillary, pulse 64, blood pressure 116/75, respiratory rate 16, 20 before that. Oxygen saturation 93 with vapotherm. FACE: Unremarkable. Rounded and Pupils are unequal. Left is dilated fully and nonreactive and the right is about 4mm and reactive. This patient had a dilated pupil before this admission. Reason unknown. THROAT: Not examined NECK: No masses and no bruit CHEST: Symmetrical and equal with good expansion. LUNGS: Coarse breath sounds and gargling and does clear up with suction. He does have some coarse rales at both lung tran with some wheezing. HEART: Audible and regular. ABDOMEN: Soft and protuberant LOWER EXTREMITIES: The patient has some discoloration in the medial side of the big toe, right. He also has in the left foot. There is no ulceration or pressure ulcerations. UPPER EXTREMITIES: Symmetrical and equal. ASSESSMENT: 1. COVID positive 2. Bilateral pneumonia by chest x-ray in the emergency room 3. Respiratory failure 4. Diabetes Mellitus on insulin 5. Down syndrome 6. Hypothyroidism 7. History of CVA 8. History of dysphagia post CVA PROGNOSIS: Very poor. TIME SPENT: GREATER THAN 65 MINUTES MTDD
--- NOTE | 2020-11-02 13:43 | PN ---
DATE OF SERVICE: 10/25/2020 SUBJECTIVE: The patient is asleep and difficult to arouse even with deep pain stimulation. He is not cyanotic and not dyspneic. He still has rales on both lung tran. HEART: Normal sinus rhythm ABDOMEN: Soft with no muscular guarding. He is now more or less nonresponsive. VITALS: Temperature 97.2 axillary, pulse rate 66, blood pressure 120/80, respiratory rate 18, oxygen saturation 98 with 1 liter nasal canula oxygen MTDD
--- NOTE | 2020-11-02 14:15 | PN ---
DATE OF SERVICE: 10/26/2020 SUBJECTIVE: The patient is nonverbal and would hardly open his eyes. He is receiving 1 gram of Rocephin daily as well as Doxycycline 100mg intravenous Q 12 hours. Remdesivir 100mg for the next 5 days. He was given Remdesivir initially in the emergency room at 200mg. The consent oropharyngeal suction. Lungs is about the same as yesterday. The CT of chest today 10/26/2020 showed more pneumonic processes more on the right side maybe aspiration pneumonia. We will continue the antibiotics. The COVID test also for 10/26/2020 remained positive. The patient has no oral intake since he is very drowsy and baring opens his eyes. CONDITION: Poor MTDD
--- NOTE | 2020-11-03 08:39 | DS ---
DATE OF SERVICE: 11/01/2020 FINAL DIAGNOSES: 1. COVID 19 positive 2. Bilateral pneumonia more right probably aspiration rather than COVID related 3. Dysphasia 4. Marked lethargy improved etiology undetermined 5. Unequal pupil cause undetermined 6. History of CVA followed by Dysphasia 7. Down syndrome 8. Diabetes Mellitus type 2 BRIEF HISTORY OF PRESENT ILLNESS/HOSPITAL COURSE: The patient tested positive for COVID 10/15/2020. The patient's condition had deteriorated to increasing shortness of breath with rales and gargling sounds and was then sent to the emergency room at [place]. The patient was found to have pneumonic process on chest x-ray and the patient was given Zosyn at the emergency room as well as Remdesivir. The patient was continued on Remdesivir 100mg daily for the next 5 days and Rocephin 1 gram daily and Doxycycline 100mg Q 12 hours IV. The Clostridium difficile was positive and the patient's lose bowel movement had stopped so no further medication was given for this problem. Mr. Scruggs did call me back this morning close to noon and wanted a little bit of education about Hospice and I told him that Hospice is part of the medical care whether people are made comfortable and if they have pain they will be given pain medication and if they are short of breath they will be given oxygen and whatever is needed to make them comfortable. He told me that he was in [place] but I don't know whether he is there now permanently or on vacation. He also told me that his daughter who is the niece for Mr. Singh is in [place] and would like to have a personal contact with the patient and I told him that that is possible but she should check with the halfway and she does have the phone number of the halfway. I would discuss this with the halfway also. He was agreeable with the Hospice and will then refer him to Hospice. The patient's CBC during this admission showed persistent lymphopenia, d-dimer slightly elevated. Chest x-ray showed bilateral pneumonia and confirmed by CT of the chest without contrast on 10/26/2020 pneumonia more on the right side appearance most likely due to aspiration. CAT scan of the head because of the unequal pupils which had been present prior to this admission showed no acute intracranial injuries to explain for the disparity in the size of the pupil. The patient has persistent dysphasia and now has progressed to inability to even swallow. Negative for influenza A and B by nuclear amplification 10/26/2020.COVID 19 by PCR was detected. PROGNOSIS: Poor The patient received Remdesivir for a total of 5 days and also Dexamethasone. TIME SPENT: GREATER THAN 30 MINUTES MTDD
== END 2020-11-01 17:46 | DRG 193 ==
LOC: ED 04:44 → MEDSURG B 07:40
PROVIDERS: ADMIT General Practice; ATTEND General Practice
DX: J18.9 Pneumonia, unspecified organism; E03.9 Hypothyroidism, unspecified; R47.02 Dysphasia; R06.02 Shortness of breath; Z86.73 Personal history of transient ischemic attack (TIA), and cerebral infarction without residual deficits; R05 Cough; J96.90 Respiratory failure, unspecified, unspecified whether with hypoxia or hypercapnia; Q90.9 Down syndrome, unspecified; E11.9 Type 2 diabetes mellitus without complications